=== PATIENT | female | born 1960 | race Caucasian/White ===

== ENCOUNTER → 2024-03-28 13:00 | Outpatient (REF) | payer OTHER, SELFPAY | LOC: HWRCS 13:00 | PROVIDERS: ATTENDING PHYSICIAN Internal Medicine Cardiovascular Disease; FAMILY PHYSICIAN Family Medicine | DX: I25.10 Atherosclerotic heart disease of native coronary artery without angina pectoris (principal); Z95.5 Presence of coronary angioplasty implant and graft; I95.0 Idiopathic hypotension; R07.89 Other chest pain; R53.83 Other fatigue | CPT/HCPCS: 93306 ==

== ENCOUNTER 2024-05-10 21:37 | Emergency (ER) | payer OTHER, SELFPAY ==
[2024-05-10 21:43] VITALS: BP 154/70
[2024-05-10 22:45] VITALS: BP 126/59
--- NOTE | 2024-05-10 23:05 | ED.GENMED ---
History of Present Illness
General
Chief Complaint: Skin Problem
Source: patient and spouse
Exam Limitations: none
Time Seen by Provider: 05/10/24 21:59
Nursing documentation reviewed up to this point in time: agreed with
History of Present Illness
History of Present Illness:
64-year-old female with history as documented presents with a left first toenail avulsion. Stubbed her toe this afternoon and avulsed the nail. No other complaints.
Past History
Past History
ED Past Medical History: CAD and GERD
ED Past Surgical History: , Orthopedic and Other (Hiatal hernia repair)
Social History
Tobacco: Non-smoker
Alcohol: None
Drug: None
Personal:
Living: with family
Employment: Employed
Family History
Family History: CAD
Review of Systems
Review of Systems
All Other Systems: ROS reviewed and negative except as documented in HPI and ROS
Skin: Reports other (Nail avulsion)
Phy Exam
Physical Exam
Physical Exam:
General: Well appearing and non-toxic
HEENT: protecting airway
Neck: appears supple
CV: No evidence of cyanosis
Resp: No accessory muscle use
Abd: Non-distended
Extremities: Patient has near complete avulsion of the right first toenail�toenail avulsed from nail bed and angled at 90 degrees to the skin
Neuro: Alert
Psych: Normal affect
Skin: Intact
Scores
Heart Failure Risk
Heart Failure Risk Score: Not Applicable
Heart Score for Chest Pain Patients
STEMI patient?: Not applicable
Withdrawal Assessment of Alcohol
Withdrawal Assessment Completed?: Not applicable
Course
Vital Signs
Initial and Last Documented VS:
Initial Vital Signs
Temp Pulse Resp BP Pulse Ox
36.8 C 57 18 154/70 97
05/10/24 21:43 05/10/24 21:43 05/10/24 21:43 05/10/24 21:43 05/10/24 21:43
Last Documented Vital Signs
Temp Pulse Resp BP Pulse Ox
36.8 C 57 18 154/70 97
05/10/24 21:43 05/10/24 21:43 05/10/24 21:43 05/10/24 21:43 05/10/24 21:43
Procedures
Digital Block
Location of injection for digital block: base of digit
Indiction for Digital Block: anesthesia for exam
Type of anesthesia: 1% Lidocaine w/o EPI
Complications: none- good anesthesia
Additional information:
Irrigated and repaired toenail avulsion under anesthesia using digital block
MDM/Problems Addressed
Differential Diagnosis Includes:
Toenail avulsion
MDM/Problems Addressed:
64-year-old female presents with a left first toenail avulsion. Anesthetized with digital block. Irrigated and cleaned toe. There is no nailbed laceration. I spoke to the patient�is a near complete avulsion, initially advised removal of the nail
but patient is very resistant to that; she does not wish to have the nail removed. Instead I was able to reapproximate the nail and glued into place using Dermabond. Will start on a prophylactic antibiotic. She already has a cash specialist, will
follow-up next week.
*Pulse Oximetry
Patient hypoxic: no
*Critical Care Note
Total Time (30-74mins, 75-104mins- exclusive of procedures): Not Applicable
Data Reviewed
Source: patient and spouse
ED Attending Note
-
Portions of this chart may have been created with voice recognition software.� Occasional wrong word or��sound alike� substitutions may have occurred due to the inherent limitations of voice recognition software.
Discharge Plan
Departure
Patient Disposition: Home (Routine Discharge)
Date of Disposition: 05/10/24
Time of Disposition: 22:27
Patient with high blood pressure during this ER visit?: Yes
Discharge Problem:
Avulsion of toenail of left foot
Instructions: Nail Avulsion (DC)
Prescriptions:
New
cephalexin 500 mg tablet
500 mg PO TID 5 Days Qty: 15 0RF
No Action
valacyclovir 500 MG tablet
500 mg PO DAILY
ascorbic acid (vitamin C) [Vitamin C] 500 MG tablet
500 mg PO DAILY
mometasone [Nasonex] 17 GM spray,non-aerosol
2 spray intranasal DAILY
aspirin 81 MG tablet,chewable
81 mg PO DAILY
montelukast 10 MG tablet
10 mg PO QPM
fluticasone propionate 1 SPRAY spray,suspension
2 spray intranasal DAILY
vitamin E (dl, acetate) 100 UNITS capsule
200 units PO DAILY
cholecalciferol (vitamin D3) 2,000 UNITS tablet
2,000 units PO DAILY
lactobacillus comb no.10 [Probiotic] 1 EACH capsule
1 cap PO DAILY
atorvastatin 40 MG tablet
40 mg PO QPM Qty: 30 5RF
nitroglycerin 0.4 MG tablet, sublingual
0.4 mg sublingual [id number] PRN (Reason: chest pain) Qty: 25 5RF
multivitamin with folic acid [Tab-A-Chantel] 1 TABLET tablet
1 tab PO DAILY
pantoprazole 40 MG tablet,delayed release (DR/EC)
40 mg PO BID Qty: 60 0RF
Referrals:
UNKNOWN - PT DOES,NOT KNOW [Family Provider] -
Activity Restrictions/Additional Instructions:
You should follow-up with your cash specialist as we discussed. If you notice any signs of infection (redness, swelling, drainage) return immediately.
Thank you for visiting the Emergency Department at [facility].
1. Please schedule a follow up appointment as directed. Call first thing tomorrow morning to make an appointment.
2. If indicated, please take your medications as instructed and indicated on discharge paperwork.
3. If any of your symptoms do not improve, or persist, or become more severe within 6-12 hours, please return to the emergency department for further care.
4. Please return to the emergency department if you develop a headache, neck pain/stiffness, fever greater than 100.4F, chest pain, shortness of breath, persistent nausea, vomiting, slurred speech, difficulty walking, numbness/tingling, weakness,
signs of infection or any other symptoms that are worrisome to you.
Please call [phone] if you have any questions.
Interventions
Interventions:
*Risk Screen - Suicide Last Done: 05/10/24 22:20
*General Assessment Last Done: 05/10/24 22:20
*Neglect/Abuse Screening Last Done: 05/10/24 22:20
ED- Fall Risk Assessment Last Done: 05/10/24 22:20
*ED COVID-19 Vaccine History Last Done: 05/10/24 22:20
ED-Skin Assessment Last Done: 05/10/24 22:10
Discharge Date and Time
Print Language: YAKUT
== END 2024-05-10 22:45 | disposition home or self-care (01) ==
LOC: EMR 21:37
PROVIDERS: EMERGENCY PHYSICIAN Emergency Medicine
DX: S91.202A Unspecified open wound of left great toe with damage to nail, initial encounter (principal); W22.8XXA Striking against or struck by other objects, initial encounter; I25.10 Atherosclerotic heart disease of native coronary artery without angina pectoris; K21.9 Gastro-esophageal reflux disease without esophagitis; Z82.49 Family history of ischemic heart disease and other diseases of the circulatory system
CPT/HCPCS: 99283

== ENCOUNTER → 2024-09-27 07:30 | Outpatient (REF) | payer OTHER, SELFPAY | LOC: HWRCS 07:30 | PROVIDERS: ATTENDING PHYSICIAN Nurse Practitioner; FAMILY PHYSICIAN Family Medicine | DX: R53.83 Other fatigue (principal) | CPT/HCPCS: 78452; 93017; A9500 ==

== ENCOUNTER 2024-11-04 18:13 | Emergency (ER) | payer OTHER, SELFPAY ==
[2024-11-04 18:32] VITALS: BP 175/88
[2024-11-04 18:57] LABS: % Basophils 0.8 % (0-2); % Eosinophils 1.5 % (0-6); % Immature Granulocytes 0.3 % (0-0.5); % Monocytes 14.4 % (1.7-9.3); Absolute Basophils 0.1 10^3/uL (0-0.2); Absolute Eosinophils 0.2 10^3/uL (0-0.7); Absolute Lymphocytes 2.7 10^3/uL (1.2-3.4); Absolute Monocytes 1.6 10^3/uL (0.1-0.6); Absolute Neutrophils 6.2 10^3/uL (1.4-6.5); Hematocrit 40.4 % (37.0-47.0); Hemoglobin 13.6 g/dL (12.0-16.0); Mean Corp Hgb Conc. 33.7 g/dL (33.0-37.0); Mean Corpuscular Hgb 32.3 pg (27.0-31.0); Mean Platelet Volume 9.5 fL (7.4-10.4); Nucleated Red Blood Cells % 0 %; Platelet Count 282 10^3/uL (130-400); Red Blood Cell Count 4.21 10^6/uL (4.20-5.40); Red Cell Dist. Width 12.5 % (11.5-14.5); White Blood Cell Count 10.7 10^3/uL (4.8-10.8)
[2024-11-04 19:14] LABS: ALT (SGPT) 26 U/L (0-35); AST (SGOT) 29 U/L (14-36); Albumin 4.8 g/dl (3.5-5.0); Alkaline Phosphatase 76 U/L (38-126); Blood Urea Nitrogen 16 mg/dl (7-17); Carbon Dioxide 30 mmol/L (22-30); Chloride 102 mmol/L (98-107); Glucose 114 mg/dl (70-99); Potassium 4.2 mmol/L (3.5-5.1); Sodium 139 mmol/L (135-145); Total Bilirubin 0.8 mg/dl (0.2-1.3); Total Protein 7.5 g/dl (6.3-8.2); eGFR > 60.00
[2024-11-04 19:23] LABS: Troponin I < 0.012 ng/ml
[2024-11-04 20:13] VITALS: BP 158/82
[2024-11-04 20:25] VITALS: BP 158/82
[2024-11-04 21:00] VITALS: BP 144/74
--- NOTE | 2024-11-04 21:10 | ED.GENMED ---
History of Present Illness
General
Chief Complaint: Blood Pressure Problem
Source: patient
Exam Limitations: none
Time Seen by Provider: 11/04/24 20:11
Nursing documentation reviewed up to this point in time: agreed with
History of Present Illness
History of Present Illness:
Patient is a 64-year-old female with past medical history of IN/cardiac stent/2020; lymphoma with surgery and radiation, splenectomy presents to the ER for evaluation. Patient reports today she felt very jittery and felt her body was racing. She
does usually a Coke every day but today had a [employer] latte. 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 She had no headache at that time. She drove herself here around 5:30
PM had some pain in her right arm and across her chest into her neck. She denies any back pain. Denies any shortness of breath. She is very anxious about her blood pressure. She reports her blood pressure normally runs 110/61. She has no blurred
vision. She does have a headache now.
She does report that over the weekend for the past several days she was out of town eat a lot of fast food including [employer] and [employer].
She is followed by leaf tier Dr. Ng.
Past History
Past History
ED Past Medical History: CAD and GERD
ED Past Surgical History: , Orthopedic and Other (Hiatal hernia repair)
Social History
Tobacco: Non-smoker
Alcohol: None
Drug: None
Personal:
Living: with family
Employment: Employed
Family History
Family History: CAD
Review of Systems
Review of Systems
Allergies reviewed?: Yes
All Other Systems: ROS reviewed and negative except as documented in HPI and ROS
Constitutional: Reports no symptoms; Denies fever, fatigue or chills
Respiratory: Reports no symptoms
Cardiac: Reports chest pain; Denies diaphoresis or syncope
ABD/GI: Reports no symptoms
: Reports no symptoms
Musculoskeletal: Reports no symptoms
Skin: Reports no symptoms
Neurological: Reports headache; Denies dizzy, weakness or numbness
Psychiatric: Reports no symptoms
Phy Exam
General Physical Exam
General Presentation: well appearing
General age: appears stated age
General Skin: warm and dry
General Habitus: normal
General Mental: alert
General Hydration: appears well hydrated
Cardiovascular Exam
Cardiovascular Exam: regular rate/rhythm, no murmur and normal peripheral pulses
Pulmonary Exam
Pulmonary Exam: lungs clear and no respiratory distress
Neurological Exam
Neurological Exam: alert, oriented x3, no motor deficits and no sensory deficits
Musculoskeletal Exam
Musculoskeletal Exam: full ROM
Skin Exam
Skin Exam: normal color and warm/dry
Psychiatric Exam
Psychiatric Exam: normal mood/affect
Course
Orders/Labs/Results
Orders:
Orders
11/04/24 18:37
ECG [Electrocardiogram (*1)] Urgent
Reason for Study: Other
Other Reason for Exam: elevated BP, neck pain
EKG- Treatment ONCE
11/04/24 18:52
Complete Blood Count/With Diff Urgent
Comprehensive Metabolic Panel Urgent
Troponin I Urgent
11/04/24 21:49
Electrocardiogram (*1) Stat
Reason for Study: Other
Other Reason for Exam: chest pain
EKG- Treatment ONCE
11/04/24 21:50
CT Head W/o Iv Contrast Urgent
Comment:
Reason For Exam: headache/htn
11/04/24 21:58
Troponin I Urgent
Abnormal Lab Results
11/04/24
18:52
MCH 32.3 H pg
(27.0-31.0)
Absolute Monos (auto) 1.6 H 10^3/uL
(0.1-0.6)
Monocytes % 14.4 H %
(1.7-9.3)
Glucose 114 H mg/dl
(70-99)
11/04/24 18:52
11/04/24 18:52
Vital Signs
Initial and Last Documented VS:
Initial Vital Signs
Temp Pulse Resp BP Pulse Ox
98.2 F 67 20 175/88 100
11/04/24 18:32 11/04/24 18:32 11/04/24 18:32 11/04/24 18:32 11/04/24 18:32
Last Documented Vital Signs
Temp Pulse Resp BP Pulse Ox
98.2 F 53 16 158/82 99
11/04/24 18:32 11/04/24 20:25 11/04/24 20:25 11/04/24 20:25 11/04/24 20:25
Saw Operator consulted with Physician
Saw Operator consulted with physician?: Yes
Name of Physician Consulted: Cheryl
MDM/Problems Addressed
MDM/Problems Addressed:
Patient is a 64-year-old female who presented to the ER for evaluation of elevated blood pressure. She did have chest discomfort into her right neck as well associated with this. She was very anxious by her blood pressure when she presented to the
ER her blood pressure is normally low. She does have a history of stent and IN and reports this pain felt different. Patient denies any shortness of breath. Patient was monitored here with 2 negative cardiac troponins no acute findings and EKG CT
head negative. Normal kidney function. Patient's blood pressure has decreased nicely since she has been here in the ER. With chest pain will place on chest pain hotline.
Patient admitted that she had a lot of fast food for over the past several days in a row which is not typically how she eats. She also had a beer last night. This spike in blood pressure may be related to high sodium fast food however it is
important and I discussed with patient that she follow-up with her leaf tier and family doctor for reevaluation of this. We did review diet changes.
She is in no acute distress here feeling much better stable for discharge home. Case reviewed ED physician
*Radiology
Radiology exam reviewed: radiology read reviewed
*Pulse Oximetry
Patient hypoxic: no
*EKG
Interpreted by ED Provider?: Yes
Interpretation: normal
Heart Rate: 57
Rate: bradycardiac
Rhythm: sinus
Ischemia: other (repeat ekg unchanged )
*Critical Care Note
Total Time (30-74mins, 75-104mins- exclusive of procedures): Not Applicable
Data Reviewed
Review of Other/Old Records Reveals: Discharge Summary
ED Attending Note
-
Portions of this chart may have been created with voice recognition software.� Occasional wrong word or��sound alike� substitutions may have occurred due to the inherent limitations of voice recognition software.
Discharge Plan
Departure
Patient Disposition: Home (Routine Discharge)
Date of Disposition: 11/04/24
Time of Disposition: 23:15
Patient with high blood pressure during this ER visit?: Yes
Condition: Fair
Covid-19: Not Applicable
Discharge Problem:
elevated blood pressure, Chest pain
Instructions: High Blood Pressure (DC), Chest Pain CBC Follow Up, BLOOD PRESSURE
Prescriptions:
No Action
valacyclovir 500 MG tablet
500 mg PO DAILY
ascorbic acid (vitamin C) [Vitamin C] 500 MG tablet
500 mg PO DAILY
mometasone [Nasonex] 17 GM spray,non-aerosol
2 spray intranasal DAILY
aspirin 81 MG tablet,chewable
81 mg PO DAILY
montelukast 10 MG tablet
10 mg PO QPM
fluticasone propionate 1 SPRAY spray,suspension
2 spray intranasal DAILY
vitamin E (dl, acetate) 100 UNITS capsule
200 units PO DAILY
cholecalciferol (vitamin D3) 2,000 UNITS tablet
2,000 units PO DAILY
lactobacillus comb no.10 [Probiotic] 1 EACH capsule
1 cap PO DAILY
atorvastatin 40 MG tablet
40 mg PO QPM Qty: 30 5RF
nitroglycerin 0.4 MG tablet, sublingual
0.4 mg sublingual [id number] PRN (Reason: chest pain) Qty: 25 5RF
multivitamin with folic acid [Tab-A-Chantel] 1 TABLET tablet
1 tab PO DAILY
pantoprazole 40 MG tablet,delayed release (DR/EC)
40 mg PO BID Qty: 60 0RF
cephalexin 500 mg tablet
500 mg PO TID 5 Days Qty: 15 0RF
Referrals:
Benitez Ng MD [Active] -
Walter Zepeda MD [Family Provider] -
Activity Restrictions/Additional Instructions:
As discussed you are placed on the chest pain hotline which means you should receive a phone call from the office in the next 1 to 2 days. If you do not please call the office to schedule soon as possible. Avoid salt be sure to stay well-hydrated.
Your blood pressure needs to be rechecked by either cardiology or family doctor in the next 2 to 3 days.
Return if any worsening of symptoms
Interventions
Interventions:
ED- Fall Risk Assessment Last Done: 11/04/24 21:27
ED- Cardiac Assessment Last Done: 11/04/24 21:27
ED- Neurological Assessment Last Done: 11/04/24 21:27
ED- Pulmonary Assessment Last Done: 11/04/24 21:27
Discharge Date and Time
Print Language: SLOVENIAN
[2024-11-04 21:23] VITALS: BP 163/93
[2024-11-04 22:40] LABS: Troponin I < 0.012 ng/ml
[2024-11-04 23:07] VITALS: BP 129/62
== END 2024-11-04 23:36 | disposition home or self-care (01) ==
LOC: EMR 18:13
PROVIDERS: Nurse Practitioner; EMERGENCY PHYSICIAN Emergency Medicine; FAMILY PHYSICIAN Family Medicine
DX: R07.89 Other chest pain (principal); R51.9 Headache, unspecified; R03.0 Elevated blood-pressure reading, without diagnosis of hypertension
CPT/HCPCS: 99285; 70450; 80053; 84484; 85025; 93005

== ENCOUNTER → 2025-05-02 09:25 | Outpatient (REF) | payer OTHER, SELFPAY | LOC: RCS 09:25 | PROVIDERS: ATTENDING PHYSICIAN Internal Medicine Cardiovascular Disease; FAMILY PHYSICIAN Family Medicine | DX: I25.10 Atherosclerotic heart disease of native coronary artery without angina pectoris (principal); R53.83 Other fatigue; Z85.72 Personal history of non-Hodgkin lymphomas | CPT/HCPCS: 93306; 93356 ==